=== PATIENT | female | born 1955 | race Caucasian/White ===

== ENCOUNTER 2022-01-22 18:58 | Inpatient (IN) | payer MEDICARE, OTHER ==
[~2022-01-22] VITALS: Ht 172.7 cm; Wt 64.1 kg
--- NOTE | 2022-01-22 19:08 | ED General ---
General Stated Complaint: OD OF MEDICATION History of Present Illness Date Seen by Provider: January 22, 2022 Time Seen by Provider: 19:08 Initial Comments 66-year-old female with PMH of HTN/depression/HDL, is here with complaints of overdose of trazodone and tizanidine which she took at 5 PM today. Her brought her in and states that she was lying in bed and he asked her what was wrong and she told him she had taken these medications. Patient is alert and oriented and able to answer all questions in the ER. Patient states that she took 10 tablets of trazodone, 100 mg each tablet, and 9 tablets of tizanidine, 4 mg each tablet. Patient last ate food at 1 PM today patient has no symptoms except that she feels a little bit sleepy. Denies nausea and vomiting, headache, chest pain, shortness of breath, abdominal pain, dizziness. Pt has been struggling with depression for the past few weeks but has not sought treatment as per . Pt stated she wants to go home and when she first came to ER, and now states she does not want to . This is her first suicide attempt. Allergies and Home Medications Allergies Coded Allergies: codeine (Verified Allergy, Unknown, 01/22/22) gabapentin (Verified Allergy, Unknown, 01/22/22) Patient Home Medication List Home Medication List Reviewed: Yes Review of Systems Review of Systems Constitutional: no symptoms reported EENTM: no symptoms reported Respiratory: no symptoms reported Cardiovascular: no symptoms reported Gastrointestinal: no symptoms reported Genitourinary: no symptoms reported Musculoskeletal: no symptoms reported Skin: no symptoms reported Psychiatric/Neurological: Depressed, Emotional Problems Hematologic/Lymphatic: No Symptoms Reported Immunological/Allergic: no symptoms reported Physical Exam Vital Signs Vital Signs - First Documented 01/22/22 19:15 Pulse 65 Resp 16 B/P (MAP) 180/102 (128) Pulse Ox 96 O2 Delivery Room Air Capillary Refill : Height, Weight, BMI Height: '" Weight: lbs. oz. kg; BMI Method: General Appearance: No Apparent Distress HEENT: Other (pin-point pupils present bilaterally) Neck: Full Range of Motion Respiratory: Chest Non Tender, Lungs Clear, Normal Breath Sounds, No Accessory Muscle Use, No Respiratory Distress Cardiovascular: Regular Rate, Rhythm, No Edema, Normal Peripheral Pulses Gastrointestinal: Non Tender, Soft Extremity: Normal Range of Motion Neurologic/Psychiatric: Alert, Oriented x3, No Motor/Sensory Deficits, non cdl driver II- XII Norm as Tested, Depressed Affect, Other (suicide attempt) Skin: Normal Color Progress/Results/Core Measures Suspected Sepsis SIRS Temperature: Pulse: Respiratory Rate: Laboratory Tests 01/22/22 19:11: White Blood Count 7.2 Blood Pressure / Mean: Laboratory Tests 01/22/22 19:11: Creatinine 0.78, Platelet Count 236, Total Bilirubin 0.3 Results/Orders Lab Results Laboratory Tests Test 01/22/22 19:11 01/22/22 21:15 Range/Units White Blood Count 7.2 4.3-11.0 10^3/uL Red Blood Count 4.48 3.80-5.11 10^6/uL Hemoglobin 13.4 11.5-16.0 g/dL Hematocrit 38 35-52 % Mean Corpuscular Volume 86 80-99 fL Mean Corpuscular Hemoglobin 30 25-34 pg Mean Corpuscular Hemoglobin Concent 35 32-36 g/dL Red Cell Distribution Width 14.6 H 10.0-14.5 % Platelet Count 236 130-400 10^3/uL Mean Platelet Volume 10.3 9.0-12.2 fL Immature Granulocyte % (Auto) 0 % Neutrophils (%) (Auto) 47 42-75 % Lymphocytes (%) (Auto) 42 12-44 % Monocytes (%) (Auto) 7 0-12 % Eosinophils (%) (Auto) 3 0-10 % Basophils (%) (Auto) 1 0-10 % Neutrophils # (Auto) 3.4 1.8-7.8 10^3/uL Lymphocytes # (Auto) 3.0 1.0-4.0 10^3/uL Monocytes # (Auto) 0.5 0.0-1.0 10^3/uL Eosinophils # (Auto) 0.2 0.0-0.3 10^3/uL Basophils # (Auto) 0.1 0.0-0.1 10^3/uL Immature Granulocyte # (Auto) 0.0 0.0-0.1 10^3/uL Sodium Level 139 135-145 MMOL/L Potassium Level 3.5 L 3.6-5.0 MMOL/L Chloride Level 103 98-107 MMOL/L Carbon Dioxide Level 21 21-32 MMOL/L Anion Gap 15 H 5-14 MMOL/L Blood Urea Nitrogen 16 7-18 MG/DL Creatinine 0.78 0.60-1.30 MG/DL Estimat Glomerular Filtration Rate 85 BUN/Creatinine Ratio 21 Glucose Level 145 H 70-105 MG/DL Calcium Level 9.1 8.5-10.1 MG/DL Corrected Calcium 8.7 8.5-10.1 MG/DL Magnesium Level 1.9 1.6-2.4 MG/DL Total Bilirubin 0.3 0.1-1.0 MG/DL Aspartate Amino Transf (AST/SGOT) 13 5-34 U/L Alanine Aminotransferase (ALT/SGPT) 7 0-55 U/L Alkaline Phosphatase 58 40-136 U/L Total Protein 7.8 6.4-8.2 GM/DL Albumin 4.5 3.2-4.5 GM/DL Acetaminophen Level < 10 L 10-30 UG/ML Serum Alcohol < 10 <10 MG/DL Urine Color YELLOW Urine Clarity CLEAR Urine pH 7.0 5-9 Urine Specific [place] 1.010 L 1.016-1.022 Urine Protein NEGATIVE NEGATIVE Urine Glucose (UA) NEGATIVE NEGATIVE Urine Ketones NEGATIVE NEGATIVE Urine Nitrite NEGATIVE NEGATIVE Urine Bilirubin NEGATIVE NEGATIVE Urine Urobilinogen 0.2 < = 1.0 MG/DL Urine Leukocyte Esterase NEGATIVE NEGATIVE Urine RBC (Auto) NEGATIVE NEGATIVE Urine RBC NONE /HPF Urine WBC 0-2 /HPF Urine Squamous Epithelial Cells 0-2 /HPF Urine Renal Epithelial Cells RARE /HPF Urine Crystals NONE /LPF Urine Bacteria FEW H /HPF Urine Casts NONE /LPF Urine Mucus SMALL H /LPF Urine Culture Indicated NO Urine Opiates Screen NEGATIVE NEGATIVE Urine Oxycodone Screen NEGATIVE NEGATIVE Urine Methadone Screen NEGATIVE NEGATIVE Urine Propoxyphene Screen NEGATIVE NEGATIVE Urine Barbiturates Screen NEGATIVE NEGATIVE Ur Tricyclic Antidepressants Screen NEGATIVE NEGATIVE Urine Phencyclidine Screen NEGATIVE NEGATIVE Urine Amphetamines Screen NEGATIVE NEGATIVE Urine Methamphetamines Screen NEGATIVE NEGATIVE Urine Benzodiazepines Screen NEGATIVE NEGATIVE Urine Cocaine Screen NEGATIVE NEGATIVE Urine Cannabinoids Screen POSITIVE H NEGATIVE My Orders Orders - ANGEL HERNANDEZ MD Naloxone Injection (Narcan Injection) (01/22/22 19:15) Acetaminophen (01/22/22 19:15) Alcohol (01/22/22 19:15) Cbc With Automated Diff (01/22/22 19:15) Comprehensive Metabolic Panel (01/22/22 19:15) Drug Screen Stat (Urine) (01/22/22 19:15) Magnesium (01/22/22 19:15) Ua Culture If Indicated (01/22/22 19:15) Ed Iv/Invasive Line Start (01/22/22 19:17) Ns Iv 1000 Ml (Sodium Chloride 0.9%) (01/22/22 19:30) Naloxone Injection (Narcan Injection) (01/22/22 19:35) Ed Iv/Invasive Line Start (01/22/22 20:47) Ns Iv 1000 Ml (Sodium Chloride 0.9%) (01/22/22 21:00) Ekg Tracing (01/22/22 21:47) Vital Signs/I&O 01/22/22 01/22/22 01/22/22 01/22/22 19:15 19:30 19:43 20:10 Pulse 65 65 72 74 Resp 16 15 15 13 B/P (MAP) 180/102 (128) 165/107 165/107 148/82 Pulse Ox 96 98 99 96 O2 Delivery Room Air Room Air Room Air Room Air 01/22/22 01/22/22 21:00 21:46 Pulse 73 80 Resp 15 16 B/P (MAP) 171/89 135/81 Pulse Ox 94 97 O2 Delivery Room Air Room Air Capillary Refill : Progress Note : Progress Note 1. MEDICATION OVERDOSE: - Pt took 10 tablets of trazodone, 100 mg each tablet, and 9 tablets of tizanidine, 4 mg each tablet. - Poison control called at 19:20, spoke to Rosalinda. Since pt only took 1gm of Trazadone monitor for bradycardia and QT prolongation. EKG's Q3H advised, and 48 hours monitoring. - EKG x2 3 hours apart show a mild improvement in QT prolongation - Narcan given immediately x2 when pt came into the ER - NS IVF bolus, then drip - Labs unremarkable - UDS: positive for marijuana - s. ETOH and s. acetaminophen levels negative - Discussed with hospitalist, and will admit to ICU - Admitting orders include EKG Q3H , next one due at 1AM, E-ICU consult, and psych screening in the morning. As per Poison Control, pt needs to be monitored for 48 hours. ECG Initial ECG Impression Date: January 22, 2022 Initial ECG Impression Time: 19:09 Initial ECG Rhythm: Normal Sinus Initial ECG Intervals: [place] Initial ECG Comparisson: No Previous ECG Available EKG : EKG Time: 22:10 Rhythm: Normal Sinus Intervals: QT (378/ 415) Intervals QT interval improvement from 1st EKG ECG Comparisson: Changed Departure Communication (Admissions) Time/Spoke to Admitting Phy: 21:[address] Lay, and accepted to ICU in [place] Impression Primary Impression: Drug overdose Qualified Codes: T50.902A - Poisoning by unspecified drugs, medicaments and biological substances, intentional self-harm, initial encounter Additional Impression: Intentional overdose of trazodone Disposition: 30 STILL A PATIENT Condition: Stable Admissions Decision to Admit Reason: Admit from ER (General) Decision to Admit/Date: January 22, 2022 Time/Decision to Admit Time: 19:30 Transfer Transfer Reason: Exceeds level of care Time Spoke to Accepting Phy: 21:45 Transfer Progress Notes See above Transfer Facility: [facility] Method of Transfer: EMS Departure-Patient Inst. Referrals: NO,LOCAL PHYSICIAN (PCP/Family) Primary Care Physician ANGEL HERNANDEZ MD January 22, 2022 19:08
[2022-01-22 19:15] VITALS: BP 180/102
[2022-01-22] MEDS ORDERED: NALOXONE 0.4 MG/ML 1 ML (NARCAN) VIAL IV STA ×2 (19:15→19:35)
[2022-01-22 19:26] LABS: BASOPHILS # (AUTO) 0.1 10^3/uL (0.0-0.1); BASOPHILS % (AUTO) 1 % (0-10); EOSINOPHILS # (AUTO) 0.2 10^3/uL (0.0-0.3); EOSINOPHILS % (AUTO) 3 % (0-10); HEMATOCRIT 38 % (35-52); HEMOGLOBIN 13.4 g/dL (11.5-16.0); LYMPHOCYTES % (AUTO) 42 % (12-44); MEAN CORPUSCULAR HEMOGLOBIN 30 pg (25-34); MEAN CORPUSCULAR HGB CONC 35 g/dL (32-36); MEAN CORPUSCULAR VOLUME 86 fL (80-99); MEAN PLATELET VOLUME 10.3 fL (9.0-12.2); MONOCYTES # (AUTO) 0.5 10^3/uL (0.0-1.0); MONOCYTES % (AUTO) 7 % (0-12); NEUTROPHILS # (AUTO) 3.4 10^3/uL (1.8-7.8); NEUTROPHILS % (AUTO) 47 % (42-75); PLATELET COUNT 236 10^3/uL (130-400); WHITE BLOOD COUNT 7.2 10^3/uL (4.3-11.0)
[2022-01-22] MEDS ORDERED: NS IV 1000 ML 1,000 ML IV SCH ×2 (19:30→21:00)
[2022-01-22 19:48] LABS: BILIRUBIN,TOTAL 0.3 MG/DL (0.1-1.0); BUN/CREATININE RATIO 21; CALCIUM 9.1 MG/DL (8.5-10.1); CARBON DIOXIDE 21 MMOL/L (21-32); CHLORIDE 103 MMOL/L (98-107); CREATININE SERUM 0.78 MG/DL (0.60-1.30); GFR ESTIMATED 85; GLUCOSE 145 MG/DL (70-105); MAGNESIUM 1.9 MG/DL (1.6-2.4); POTASSIUM 3.5 MMOL/L (3.6-5.0); SODIUM 139 MMOL/L (135-145)
[2022-01-22 19:49] LABS: ACETAMINOPHEN < 10 UG/ML (10-30); ALANINE AMINOTRANSFERASE 7 U/L (0-55); ALBUMIN 4.5 GM/DL (3.2-4.5); ALKALINE PHOSPHATASE 58 U/L (40-136); TOTAL PROTEIN 7.8 GM/DL (6.4-8.2)
[2022-01-22 21:26] LABS: BILIRUBIN,URINE NEGATIVE (NEGATIVE); CLARITY,URINE CLEAR; COLOR,URINE YELLOW; GLUCOSE, URINE (UA) NEGATIVE (NEGATIVE); KETONES,URINE NEGATIVE (NEGATIVE); LEUKOCYTE ESTERASE ,URINE NEGATIVE (NEGATIVE); NITRITE,URINE NEGATIVE (NEGATIVE); PROTEIN,URINE NEGATIVE (NEGATIVE)
[2022-01-22 21:37] LABS: AMPHETAMINE SCREEN, URINE NEGATIVE (NEGATIVE); BARBITURATE SCREEN URINE NEGATIVE (NEGATIVE); BENZODIAZEPINES SCREEN URINE NEGATIVE (NEGATIVE); CANNABINOID SCREEN, URINE POSITIVE (NEGATIVE); COCAINE SCREEN URINE NEGATIVE (NEGATIVE); METHADONE STAT NEGATIVE (NEGATIVE); OPIATE SCREEN URINE NEGATIVE (NEGATIVE); OXYCODONE STAT NEGATIVE (NEGATIVE); PROPOXYPHENE STAT NEGATIVE (NEGATIVE); TRICYCLIC ANTIDEPRESSANTS SCRE NEGATIVE (NEGATIVE)
[2022-01-22 21:39] LABS: BACTERIA,URINE FEW /HPF; RENAL EPITHELIAL CELLS,URINE RARE /HPF; SQUAMOUS EPITHELIAL CELL,UR 0-2 /HPF; WBC,URINE 0-2 /HPF
[2022-01-22] MEDS ORDERED: ONDANSETRON 4 MG/2 ML (SDV) Z0FRAN IVP ONE (22:15)
[2022-01-23] MEDS: NS IV 1000 ML 1,000 ML IV SCH ×2 (00:39→09:41)
--- NOTE | 2022-01-23 00:40 | Tele-ICU Consult ---
History of Present Illness History of Present Illness Date Seen by Provider: January 23, 2022 Time Seen by Provider: 00:35 History of Present Illness 66 yo F with Hx of depression, came to ED after taking 10 Trazodone 100 mg and 9 tizanidine 4 mg, felt sleepy, was suicide attempt though says not feeling suicidal now c/o feeling sleepy, chart states first suicide attempt QTc is 481 UDS + for cannibinoids, neg for Tylenol and EtOH Other PMH HDL, HTN Allergies and Home Medications Allergies Coded Allergies: codeine (Verified Allergy, Unknown, 01/22/22) gabapentin (Verified Allergy, Unknown, 01/22/22) Past Medical/Social/Family Hx Patient Social History Tobacco Use?: Yes Tobacco type used: Cigarettes Smoking Status: Current Everyday Smoker Use of E-Cig and/or Vaping dev: No Substance use?: Yes Substance type: Marijuana Alcohol Use?: No Pt stated abuse/neglect: Yes Immunizations Up To Date First/Initial COVID19 Vaccinat: 2020 Second COVID19 Vaccination Edmundo: 2021 Tetanus Booster (TDap): Unknown Current Status status: No status: No Advance Directives: Unable to obtain Advance Directive Location: Pt unsure if she has paperwork stating she's DNR Primary Language: Kosovan Preferred Spoken Language: Kosovan Sensory deficits: Vision impairment Implanted or Applied Medical D: None Review of Systems Constitutional: see HPI EENTM: see HPI Respiratory: see HPI Cardiovascular: see HPI Gastrointestinal: see HPI Genitourinary: see HPI Musculoskeletal: see HPI Skin: see HPI Psychiatric/Neurological: See HPI Focused Exam Height, Weight, BMI Height: '" Weight: lbs. oz. kg; 21.49 BMI Method: Exam Exam Patient acknowledged, consented, and participated in this virtual visit which w as conducted using real time audio/video Vital Signs Date Time Temp Pulse Resp B/P (MAP) Pulse Ox O2 Delivery O2 Flow Rate FiO2 01/22/22 21:46 80 16 135/81 97 Room Air 01/22/22 21:00 73 15 171/89 94 Room Air 01/22/22 20:10 74 13 148/82 96 Room Air 01/22/22 19:43 72 15 165/107 99 Room Air 01/22/22 19:30 65 15 165/107 98 Room Air 01/22/22 19:15 65 16 180/102 (128) 96 Room Air I & O 01/23/22 06:59 Intake Total 1000 ml Balance 1000 ml Height & Weight Height: '" Weight: lbs. oz. kg; 21.49 BMI Method: General Appearance: No Apparent Distress HEENT: Other (pin-point pupils present bilaterally) Neck: Full Range of Motion Respiratory: Chest Non Tender, Lungs Clear, Normal Breath Sounds, No Accessory Muscle Use, No Respiratory Distress Cardiovascular: Regular Rate, Rhythm, No Edema, Normal Peripheral Pulses Extremity: Normal Range of Motion Neurologic/Psychiatric: Alert, Oriented x3, No Motor/Sensory Deficits, floor coverings salesperson II- XII Norm as Tested, Depressed Affect, Other (suicide attempt) Skin: Normal Color Results Lab Laboratory Tests 01/22/22 19:11 Assessment/Plan Assessment/Plan will monitor QTc interval, suicide precautions, psych to see BP had been high but now ok 137/92 Critical Care: Critically Ill Patient Time spent with patient (mins): 25 SHYLA OH MD January 23, 2022 00:40
[2022-01-23 05:23] LABS: BASOPHILS # (AUTO) 0.1 10^3/uL (0.0-0.1); BASOPHILS % (AUTO) 1 % (0-10); EOSINOPHILS % (AUTO) 0 % (0-10); HEMATOCRIT 37 % (35-52); HEMOGLOBIN 12.7 g/dL (11.5-16.0); LYMPHOCYTES # (AUTO) 1.9 10^3/uL (1.0-4.0); LYMPHOCYTES % (AUTO) 20 % (12-44); MEAN CORPUSCULAR HEMOGLOBIN 30 pg (25-34); MEAN CORPUSCULAR HGB CONC 34 g/dL (32-36); MEAN CORPUSCULAR VOLUME 88 fL (80-99); MEAN PLATELET VOLUME 10.7 fL (9.0-12.2); MONOCYTES # (AUTO) 0.5 10^3/uL (0.0-1.0); MONOCYTES % (AUTO) 6 % (0-12); NEUTROPHILS % (AUTO) 73 % (42-75); PLATELET COUNT 237 10^3/uL (130-400); WHITE BLOOD COUNT 9.5 10^3/uL (4.3-11.0)
[2022-01-23 05:50] LABS: POTASSIUM 3.8 MMOL/L (3.6-5.0)
[2022-01-23 05:51] LABS: CALCIUM 8.7 MG/DL (8.5-10.1)
[2022-01-23 05:54] LABS: BILIRUBIN,TOTAL 0.6 MG/DL (0.1-1.0)
[2022-01-23 05:56] LABS: CREATININE SERUM 0.8 MG/DL (0.60-1.30); PHOSPHORUS 2.9 MG/DL (2.3-4.7)
[2022-01-23 05:59] LABS: MAGNESIUM 1.8 MG/DL (1.6-2.4)
[2022-01-23] MEDS ORDERED: POTASSIUM CL 10MEQ/50ML IVPB 50 ML IV SCH (06:00)
[2022-01-23] MEDS ORDERED: MAGNESIUM 1 GM/100 ML IVPB 100 ML IV SCH (06:00)
[2022-01-23] MEDS ORDERED: KCL 20 MEQ TAB (K-DUR) PO SCH (06:00)
[2022-01-23 06:14] LABS: BASOPHILS % (MANUAL) 1 %; EOSINOPHILS % (MANUAL) 1 %; LYMPHOCYTES % (MANUAL) 25 %; MONOCYTES % (MANUAL) 3 %; NEUTROPHILS % (MANUAL) 70 %; RBC MORPH NORMAL
--- NOTE | 2022-01-23 09:58 | Tele-ICU Progress Note ---
Progress Note Video assessment done using teleICU camera, rest of exam as per RN Patient is AAO , appropriate Discussed with RN , 66 yo F with Hx of depression, came to ED after taking 10 Trazodone 100 mg and 9 tizanidine 4 mg, felt sleepy, was suicide attempt though says not feeling suicidal now QTc is 481 - no arrhytmias UDS + for cannibinoids, neg for Tylenol and EtOH will monitor QTc interval, suicide precautions, psych to see vitals stable Discussed with RN to reach out if any questions or concerns Focused Exam Height, Weight, BMI Height: '" Weight: lbs. oz. kg; 21.49 BMI Method: FORD MAHONEY MD January 23, 2022 09:58
[2022-01-23] MEDS ORDERED: METO50TA15 PO (12:16)
[2022-01-23] MEDS ORDERED: MELO15TA39 PO (12:16)
[2022-01-23] MEDS ORDERED: TRAZ-227 PO (12:16)
[2022-01-23] MEDS ORDERED: TIZA-186 PO (12:16)
[2022-01-23] MEDS ORDERED: ALPR0.254 PO (12:16)
--- NOTE | 2022-01-23 13:09 | Discharge Summary ---
Discharge Summary Hospital Course Hospital Course Date of Admission: January 22, 2022 at 23:38 Admission Diagnosis : Family Physician/Provider: BriannaLocal Physician Date of Discharge: 01/23/22 Discharge Diagnosis: [ ] Hospital Course: [ ] Labs and Pending Lab Test: Laboratory Tests 01/22/22 19:11: White Blood Count 7.2, Red Blood Count 4.48, Hemoglobin 13.4, Hematocrit 38, Mean Corpuscular Volume 86, Mean Corpuscular Hemoglobin 30, Mean Corpuscular Hemoglobin Concent 35, Red Cell Distribution Width 14.6H, Platelet Count 236, Mean Platelet Volume 10.3, Immature Granulocyte % (Auto) 0, Neutrophils (%) (Auto) 47, Lymphocytes (%) (Auto) 42, Monocytes (%) (Auto) 7, Eosinophils (%) (Auto) 3, Basophils (%) (Auto) 1, Neutrophils # (Auto) 3.4, Lymphocytes # (Auto) 3.0, Monocytes # (Auto) 0.5, Eosinophils # (Auto) 0.2, Basophils # (Auto) 0.1, Immature Granulocyte # (Auto) 0.0, Sodium Level 139, Potassium Level 3.5L, Chloride Level 103, Carbon Dioxide Level 21, Anion Gap 15H, Blood Urea Nitrogen 16, Creatinine 0.78, Estimat Glomerular Filtration Rate 85, BUN/Creatinine Ratio 21, Glucose Level 145H, Calcium Level 9.1, Corrected Calcium 8.7, Magnesium Level 1.9, Total Bilirubin 0.3, Aspartate Amino Transf (AST/SGOT) 13, Alanine Aminotransferase (ALT/SGPT) 7, Alkaline Phosphatase 58, Total Protein 7.8, Albumin 4.5, Acetaminophen Level < 10L, Serum Alcohol < 10 01/22/22 21:15: Urine Color YELLOW, Urine Clarity CLEAR, Urine pH 7.0, Urine Specific [place] 1.010L, Urine Protein NEGATIVE, Urine Glucose (UA) NEGATIVE, Urine Ketones NEGATIVE, Urine Nitrite NEGATIVE, Urine Bilirubin NEGATIVE, Urine Urobilinogen 0.2, Urine Leukocyte Esterase NEGATIVE, Urine RBC (Auto) NEGATIVE, Urine RBC NONE, Urine WBC 0-2, Urine Squamous Epithelial Cells 0-2, Urine Renal Epithelial Cells RARE, Urine Crystals NONE, Urine Bacteria FEWH, Urine Casts NONE, Urine Mucus SMALLH, Urine Culture Indicated NO, Urine Opiates Screen NEGATIVE, Urine Oxycodone Screen NEGATIVE, Urine Methadone Screen NEGATIVE, Urine Propoxyphene Screen NEGATIVE, Urine Barbiturates Screen NEGATIVE, Ur Tricyclic Antidepressants Screen NEGATIVE, Urine Phencyclidine Screen NEGATIVE, Urine Amphetamines Screen NEGATIVE, Urine Methamphetamines Screen NEGATIVE, Urine Benzodiazepines Screen NEGATIVE, Urine Cocaine Screen NEGATIVE, Urine Cannabinoids Screen POSITIVEH 01/23/22 04:20: White Blood Count 9.5, Red Blood Count 4.18, Hemoglobin 12.7, Hematocrit 37, Mean Corpuscular Volume 88, Mean Corpuscular Hemoglobin 30, Mean Corpuscular Hemoglobin Concent 34, Red Cell Distribution Width 14.7H, Platelet Count 237, Mean Platelet Volume 10.7, Immature Granulocyte % (Auto) 0, Neutrophils (%) (Auto) 73, Lymphocytes (%) (Auto) 20, Monocytes (%) (Auto) 6, Eosinophils (%) (Auto) 0, Basophils (%) (Auto) 1, Neutrophils # (Auto) 7.0, Lymphocytes # (Auto) 1.9, Monocytes # (Auto) 0.5, Eosinophils # (Auto) 0.0, Basophils # (Auto) 0.1, Immature Granulocyte # (Auto) 0.0, Sodium Level 141, Potassium Level 3.8, Chloride Level 109H, Carbon Dioxide Level 20L, Anion Gap 12, Blood Urea Nitrogen 10, Creatinine 0.80, Estimat Glomerular Filtration Rate 82, BUN/Creatinine Ratio 13, Glucose Level 108H, Calcium Level 8.7, Corrected Calcium 8.7, Magnesium Level 1.8, Total Bilirubin 0.6, Aspartate Amino Transf (AST/SGOT) 12, Alanine Aminotransferase (ALT/SGPT) 8, Alkaline Phosphatase 52, Total Protein 7.0, Albumin 4.0, Neutrophils % (Manual) 70, Lymphocytes % (Manual) 25, Monocytes % (Manual) 3, Eosinophils % (Manual) 1, Basophils % (Manual) 1, Blood Morphology Comment NORMAL, Phosphorus Level 2.9 Home Meds Active Reported Metoprolol Tartrate 50 Mg Tablet 50 Mg PO BID Trazodone HCl 100 Mg Tablet 100 Mg PO HS Tizanidine HCl 4 Mg Tablet 4 Mg PO TID PRN Meloxicam 15 Mg Tablet 15 Mg PO DAILY ALPRAZolam 0.25 Mg Tablet 0.25 Mg PO 1200 Discharge Physical Examination Vital Signs Vital Signs Date Time Temp Pulse Resp B/P (MAP) Pulse Ox O2 Delivery O2 Flow Rate FiO2 01/23/22 12:23 36.4 01/23/22 12:00 77 17 148/103 93 Room Air Allergies: Coded Allergies: codeine (Verified Allergy, Unknown, 01/22/22) gabapentin (Verified Allergy, Unknown, 01/22/22) Discharge Summary Date of Admission January 22, 2022 at 23:38 Date of Discharge CRISTIAN TALBOT MD January 23, 2022 13:09
== END 2022-01-23 13:00 | disposition home or self-care (01) | DRG 918 ==
LOC: ER FS 19:00 → ICU 23:38
PROVIDERS: ADMIT Internal Medicine; ATTEND Internal Medicine
DX: T43.212A Poisoning by selective serotonin and norepinephrine reuptake inhibitors, intentional self-harm, initial encounter (principal); I10 Essential (primary) hypertension; F32.A Depression, unspecified; E78.5 Hyperlipidemia, unspecified; F17.210 Nicotine dependence, cigarettes, uncomplicated; F12.90 Cannabis use, unspecified, uncomplicated
CPT/HCPCS: 36415; 80053; 80306; 80320; 80329; 81000; 83735; 84100; 85007; 85025; 85027; 87081; 93005